=== PATIENT | male | born 1965 | race Caucasian/White ===

== ENCOUNTER 2018-04-17 19:23 | Emergency (ER) | payer BC ==
--- NOTE | 2018-04-17 19:25 | PDOC ---
History of Present Illness - General History Source: Patient Exam Limitations: No Limitations <Dede Noland - Last Filed: 04/17/18 20:52> <Chikis Deng - Last Filed: 04/18/18 03:49> - General Chief Complaint: Pain, Acute Stated Complaint: CHEST PAIN Time Seen by Provider: 04/17/18 19:24 - History of Present Illness Initial Comments: 04/17/18 20:30 The patient is a 52 year old male, with a significant past medical history of SVT (s/p unsuccessful ablation x1), DM, CAD, neuropathy (fingertips), HTN, GERD , and ventricular palpitations who presents to the emergency department s/p 3 second episode of bilateral neck cramping. Patient describes it as a cramping sensation initiating below the chin radiating down to the midsternal area lasting a few seconds, occuring after dinner. He notes a similar episode 3 days ago while stretching. While in the ED, he reports a repeat episode occurring for 2 seconds and since then has been asymptomatic. He follows up with his cloud engineer yearly, last echocardiogram and stress test done Spring 2017 without any pertinent findings. He denies repeat sensation during strenuous exercise including climbing stares, which he does daily at work. He denies any dysphasia, palpitations, chest pain, or shortness of breath. He denies any change in urinary or bowel continence. Allergies: Aspirin. Ibuprofen. Penicillins. Iodine. Past surgical history: Unsuccessful ablation x1, rotator cuff surgery. Social history: Nonsmoker. Denies EtOH use and recreational drug use. (Dede Noland) Past History <Dede Noland - Last Filed: 04/17/18 20:52> - Past Medical History Cardiac Disorders: Yes (SVT, ABLATION X1) Diabetes: Yes GI Disorders: Yes (GERD) HTN: Yes - Suicide/Smoking/Psychosocial Hx Smoking Status: No Smoking History: Never smoked Have you smoked in the past 12 months: No Number of Cigarettes Smoked Daily: 0 Hx Alcohol Use: No Drug/Substance Use Hx: No Substance Use Type: None <Chikis Deng - Last Filed: 04/18/18 03:49> - Past Medical History Allergies/Adverse Reactions: Allergies Allergy/AdvReac Type Severity Reaction Status Date / Time aspirin Allergy Severe Verified 04/17/18 19:25 ibuprofen Allergy Severe Difficulty Verified 04/17/18 19:25 Breathing iodine [Iodine] Allergy Severe Difficulty Verified 04/17/18 19:25 Breathing Penicillins Allergy Severe Difficulty Verified 04/17/18 19:25 Breathing Home Medications: Ambulatory Orders Atenolol [Tenormin] 25 mg PO BID 07/21/11 Cholecalciferol (Vitamin D3) [Vitamin D3] 1,000 units PO DAILY 07/21/11 Clopidogrel Bisulfate [Plavix] 75 mg PO DAILY 07/21/11 Fish Oil 300 PO DAILY 07/21/11 Metformin HCl [Glucophage] 500 mg PO BID 07/21/11 Pioglitazone HCl [Actos] 15 mg PO BID 07/21/11 Quinapril HCl [Accupril] 10 mg PO DAILY 07/21/11 Rabeprazole Sodium [Aciphex (Nf) 20 MG] 20 mg PO DAILY 07/21/11 Simvastatin [Zocor] 20 mg PO DAILY 07/21/11 Review of Systems - Review of Systems Able to Perform ROS?: Yes <Dede Noland - Last Filed: 04/17/18 20:52> <Chikis Deng - Last Filed: 04/18/18 03:49> - Review of Systems Comments:: 04/17/18 20:31 CONSTITUTIONAL: Absent: fever, chills, diaphoresis, generalized weakness, malaise, loss of appetite HEENT: Absent: rhinorrhea, nasal congestion, throat pain, throat swelling, difficulty swallowing, mouth swelling, ear pain, eye pain, visual Changes CARDIOVASCULAR: Absent: chest pain, syncope, palpitations, irregular heart rate, lightheadedness , peripheral edema RESPIRATORY: Absent: cough, shortness of breath, dyspnea with exertion, orthopnea, wheezing, stridor, hemoptysis GASTROINTESTINAL: Absent: abdominal pain, abdominal distension, nausea, vomiting, diarrhea, constipation, melena, hematochezia GENITOURINARY: Absent: dysuria, frequency, urgency, hesitancy, hematuria, flank pain, genital pain MUSCULOSKELETAL: Absent: myalgia, arthralgia, joint swelling SKIN: Absent: rash, itching, pallor HEMATOLOGIC/IMMUNOLOGIC: Absent: easy bleeding, easy bruising, lymphadenopathy, frequent infections ENDOCRINE: Absent: unexplained weight gain, unexplained weight loss, heat intolerance, cold intolerance NEUROLOGIC: Absent: headache, focal weakness or paresthesias, dizziness, unsteady gait, seizure, mental status changes, bladder or bowel incontinence PSYCHIATRIC: Absent: anxiety, depression, suicidal or homicidal ideation, hallucinations. (Dede Noland) *Physical Exam <Dede Noland - Last Filed: 04/17/18 20:52> <Chikis Deng - Last Filed: 04/18/18 03:49> - Vital Signs Last Vital Signs Temp Pulse Resp BP Pulse Ox 98.6 F 96 H 16 109/72 99 04/17/18 19:54 04/17/18 20:49 04/17/18 20:49 04/17/18 20:49 04/17/18 20:49 - Physical Exam Comments: 04/17/18 20:31 GENERAL: The patient is awake, alert, and fully oriented, in no acute distress. HEAD: Normal with no signs of trauma. EYES: Pupils equal, round and reactive to light, extraocular movements intact, sclera anicteric, conjunctiva clear with no pallor. ENT: Ears normal, nares patent, oropharynx clear without exudates. Moist mucous membranes. NECK: Normal range of motion, supple without lymphadenopathy, JVD, or masses. LUNGS: Breath sounds equal, clear to auscultation bilaterally. No wheeze/ crackles. HEART: Regular rate and rhythm, normal S1 and S2 without murmur or rub. ABDOMEN: Soft/nontender/nondistended. BS wnl. No guarding or rebound. No palpable masses. No hepatosplenomegaly. EXTREMITIES: Normal range of motion, no edema. No clubbing or cyanosis. No cords, erythema, or tenderness. NEUROLOGICAL: Cranial nerves II through XII grossly intact. Normal speech, normal gait. PSYCH: Normal mood, normal affect. SKIN: Warm, Dry, normal turgor, no rashes or lesions noted. (Dede Noland) Heart Score/ECG Review - History History: Slightly suspicious - Electrocardiogram EKG: Normal - Age Age: 45-65 - Risk Factors Risk Factors Heart Score: Yes Hx Hypertension, Yes Hx Diabetes, Yes Positive family hx of cardiac disease Based on the list above the patient has:: >/=3 risk factors or Hx atherosclerotic disease - Troponin Troponin: </= normal limit - Score Heart Score - Total: 3 <Chikis Deng - Last Filed: 04/18/18 03:49> ED Treatment Course - LABORATORY CBC & Chemistry Diagram: 04/17/18 19:54 04/17/18 19:54 <Dede Noland - Last Filed: 04/17/18 20:52> - LABORATORY CBC & Chemistry Diagram: 04/17/18 19:54 04/17/18 19:54 <Chikis Deng - Last Filed: 04/18/18 03:49> - ADDITIONAL ORDERS Additional order review: Laboratory Results 04/17/18 04/17/18 04/17/18 19:54 19:54 19:54 PT with INR 11.4 INR 1.02 Sodium 135 L Potassium 3.8 Chloride 104 Carbon Dioxide 25 Anion Gap 6 L BUN 16 Creatinine 0.8 Creat Clearance w eGFR > 60 Random Glucose 147 H D Calcium 9.3 Total Bilirubin 0.5 AST 18 ALT 23 D Alkaline Phosphatase 43 Creatine Kinase 91 Troponin I < 0.03 Total Protein 6.8 Albumin 4.0 04/17/18 19:54 RBC 4.86 MCV 87.4 MCHC 32.5 RDW 13.9 MPV 7.8 Neutrophils % 63.2 Lymphocytes % 26.7 D Monocytes % 7.7 Eosinophils % 1.7 D Basophils % 0.7 Medical Decision Making <Dede Noland - Last Filed: 04/17/18 20:52> <Chikis Deng - Last Filed: 04/18/18 03:49> - Medical Decision Making Documentation has been prepared under my direction and personally reviewed by me in its entirety. I attest that this documented accurately reflects all work, treatment, procedures and medical decision making performed by me. As noted above, this 52-year-old man with a history of hypertension/diabetes mellitus/family history of CAD presents with a few episodes of discomfort lasting a few seconds, occurring below his chin radiating to just below the suprasternal notch. No associated symptoms with this sensation and it resolves spontaneously. The patient has no history of this discomfort occurring during strenuous exercise. EKG/echo/stress test approximately 6 months ago in his cloud engineer's office was reportedly normal. Exam as noted. 12-lead electrocardiogram performed and interpreted by me: Normal sinus rhythm at 81 bpm; there is left axis deviation. Wave forms are otherwise normal without evidence of acute ST or T-wave abnormalities. There is no evidence of ectopy. CBC/chemistry profile including troponin level sent for analysis. Results of laboratory evaluation: CBC is essentially normal. Chemistries likewise shows no significant abnormalities (random glucose is 147). Troponin is not elevated. LFTs and renal function are normal Etiology of the patient's episodes is unclear. There was no evidence of thyroid masses or other abnormality on neck exam. Patient was advised to follow -up with his bottom sander who is scheduled to see the patient on , April 19. Also he should return to the ER if there is any worsening of symptoms. (Chikis Deng) *DC/Admit/Observation/Transfer <Dede Noland - Last Filed: 04/17/18 20:52> <Chikis Deng - Last Filed: 04/18/18 03:49> Diagnosis at time of Disposition: Atypical chest pain - Discharge Dispostion Disposition: HOME Condition at time of disposition: Stable - Patient Instructions Printed Discharge Instructions: DI for Atypical Chest Pain Additional Instructions: continue medications as prescribed followup with your bottom sander in 2 days as scheduled consider ENT evaluation within the next week as discussed Return to ER immediately if you have worsening pain, shortness of breath, palpitations, lightheadedness - Attestations Scribe Attestion: 04/17/18 20:31 Documentation prepared by Dede Noland, acting as diploma medical assistant for Chikis Dneg MD. (Dede Noland)
[2018-04-17 20:00] VITALS: TEMP 98.6; BMI 41.3
[2018-04-17 20:14] LABS: BASO % 0.7 % (0-2.0); EOS % 1.7 % (0-4.5); HEMATOCRIT 42.5 % (35.4-49); HEMOGLOBIN 13.8 GM/dl (11.7-16.9); LYMPH % 26.7 % (8-40); MCH 28.4 pg (25.7-33.7); MCHC 32.5 g/dl (32.0-35.9); MEAN CELL VOLUME 87.4 fl (80-96); MEAN PLT VOLUME 7.8 fl (7.5-11.1); MONO % 7.7 % (3.8-10.2); NEUT % 63.2 % (42.8-82.8); PLATELET COUNT 318 K/MM3 (134-434); RBC 4.86 M/mm3 (4.00-5.60); RDW 13.9 % (11.9-15.9); WHITE BLOOD COUNT 9.6 K/mm3 (4.0-10.8)
[2018-04-17 20:17] LABS: INR 1.02 (0.82-1.09); PROTHROMBIN TIME (PATIENT) 11.4 SEC (10.2-13.0)
[2018-04-17 20:23] LABS: ALK PHOS 43 U/L (32-92); ANION GAP 6 MMOL/L (8-16); BILIRUBIN,TOTAL 0.5 mg/dl (0.2-1.0); BLOOD UREA NITROGEN 16 mg/dl (7-18); CALCIUM 9.3 mg/dl (8.4-10.2); CHLORIDE 104 mmol/L (98-107); CO2 25 mmol/L (22-28); CREATININE 0.8 mg/dl (0.6-1.3); GLUCOSE,RANDOM 147 mg/dl (74-106); POTASSIUM 3.8 mmol/L (3.5-5.1); SGOT/AST 18 U/L (10-42); SGPT/ALT 23 U/L (10-40); SODIUM 135 mmol/L (136-145); TOT PROT 6.8 g/dl (6.4-8.3)
[2018-04-17 20:50] VITALS: BP 109/72; PULSE 96
--- NOTE | 2018-04-19 15:09 | EKG ---
Test Reason : Blood Pressure : / mmHG Vent. Rate : 081 BPM Atrial Rate : 081 BPM P-R Int : 192 ms QRS Dur : 098 ms QT Int : 366 ms P-R-T Axes : 036 -35 016 degrees QTc Int : 425 ms NORMAL SINUS RHYTHM LEFT AXIS DEVIATION MODERATE VOLTAGE CRITERIA FOR LVH, MAY BE NORMAL VARIANT ABNORMAL ECG NO PREVIOUS ECGS AVAILABLE Confirmed by RAMÍREZ MUJICA MD ([id number]) on 04/19/2018 3:09:04 PM Referred By: ATIYA DUTTA Confirmed By:RAMÍREZ MUJICA MD
== END 2018-04-17 20:52 | disposition home or self-care (01) ==
LOC: FER 19:23
DX: R07.89 Other chest pain (principal); I10 Essential (primary) hypertension; E11.9 Type 2 diabetes mellitus without complications; K21.9 Gastro-esophageal reflux disease without esophagitis
CPT/HCPCS: 36415; 80053; 82550; 84484; 85025; 85610; 93005; 99282-25

== ENCOUNTER 2020-09-27 14:49 | Inpatient (IN) | payer BC ==
[2020-09-27] MEDS ORDERED: MAG HYDROX/AL HYDROX/SIMETH -MYLANTA- ORAL SUSPENSION PO ONE (15:20)
[2020-09-27] MEDS ORDERED: FAMOTIDINE 20 MG/50 ML IVPB 20 MG/50 ML MG IVPB ONE ×2 (15:20→15:48)
[2020-09-27 15:29] VITALS: BMI 38.0
[2020-09-27] MEDS ORDERED: MAG HYDROX/AL HYDROX/SIMETH 30 ML UNIT-DOSE CUP ONE (15:48)
[2020-09-27 16:17] LABS: BASO % 0.8 % (0-2.0); EOS % 1.3 % (0-4.5); HEMATOCRIT 45.3 % (35.4-49); HEMOGLOBIN 15.4 GM/dl (11.7-16.9); LYMPH % 21.2 % (8-40); MCH 30.1 pg (25.7-33.7); MCHC 33.9 g/dl (32.0-35.9); MEAN CELL VOLUME 88.8 fl (80-96); MEAN PLT VOLUME 8.5 fl (7.5-11.1); NEUT % 69.7 % (42.8-82.8); PLATELET COUNT 301 K/MM3 (134-434); RDW 13.4 % (11.9-15.9); WHITE BLOOD COUNT 10.1 K/mm3 (4.0-10.8)
[2020-09-27 16:34] LABS: ALBUMIN 4.1 g/dl (3.4-5.0); BILIRUBIN,TOTAL 0.6 mg/dl (0.2-1); CALCIUM 9.2 mg/dl (8.5-10); CREATININE 0.8 mg/dl (0.55-1.3); TOT PROT 6.9 g/dl (6.4-8.2)
[2020-09-27] MEDS ORDERED: SODIUM CHLORIDE 0.9% 500 ML INFUS.BAG IV ONE (16:38)
[2020-09-27] MEDS ORDERED: PATIENT'S OWN MEDICATION (NON-FORMULARY) (Semaglutide [Ozempic] 1 MG/0.75 ML Pen.Injctr) SQ SCH (23:30)
[2020-09-27] MEDS: INSULIN SLIDING SCALE (NOVOLOG) 1 VIAL SQ SCH (23:40)
[2020-09-27] MEDS: CARVEDILOL 12.5 MG TABLET (FP) PO SCH (23:40)
[2020-09-28] MEDS: INSULIN SLIDING SCALE (NOVOLOG) 1 VIAL SQ SCH ×4 (06:16→21:44)
[2020-09-28 08:18] LABS: BASO % 0.3 % (0-2.0); EOS % 1.8 % (0-4.5); HEMATOCRIT 40.8 % (35.4-49); HEMOGLOBIN 13.9 GM/dl (11.7-16.9); LYMPH % 23.3 % (8-40); MCH 30.1 pg (25.7-33.7); MCHC 34.1 g/dl (32.0-35.9); MEAN CELL VOLUME 88.1 fl (80-96); MEAN PLT VOLUME 8.2 fl (7.5-11.1); MONO % 9.8 % (3.8-10.2); NEUT % 64.8 % (42.8-82.8); PLATELET COUNT 273 K/MM3 (134-434); RBC 4.64 M/mm3 (4.00-5.60); RDW 13.2 % (11.9-15.9); WHITE BLOOD COUNT 8.9 K/mm3 (4.0-10.8)
[2020-09-28 08:27] LABS: ALBUMIN 3.6 g/dl (3.4-5.0); BILIRUBIN,TOTAL 0.7 mg/dl (0.2-1); CALCIUM 8.6 mg/dl (8.5-10); CREATININE 0.6 mg/dl (0.55-1.3); PHOSPHOROUS 3.1 mg/dl (2.5-4.9)
[2020-09-28] MEDS: CHOLECALCIFEROL (VIT D3) 1,000 UNIT (25 MCG) TABLET PO SCH (09:51)
[2020-09-28] MEDS: QUINAPRIL HCL 5 MG TABLET PO SCH (09:51)
[2020-09-28] MEDS: CARVEDILOL 12.5 MG TABLET (FP) PO SCH ×2 (09:51→21:44)
[2020-09-28] MEDS: CLOPIDOGREL BISULFATE 75 MG TABLET (FP) PO SCH (09:51)
[2020-09-28] MEDS ORDERED: CARVEDILOL 12.5 MG TABLET (FP) PO SCH (10:00)
[2020-09-28] MEDS ORDERED: PATIENT'S OWN MEDICATION (NON-FORMULARY) (Simvastatin [Zocor] 20 MG Tablet) PO SCH (10:00)
[2020-09-28] MEDS ORDERED: QUINAPRIL HCL 10 MG TABLET PO SCH (10:00)
[2020-09-28] MEDS: ATORVASTATIN CA 10 MG TABLET (FP) PO SCH (22:33)
[2020-09-29] MEDS: INSULIN SLIDING SCALE (NOVOLOG) 1 VIAL SQ SCH ×4 (06:31→22:05)
[2020-09-29 08:17] LABS: CALCIUM 8.9 mg/dl (8.5-10); CREATININE 0.7 mg/dl (0.55-1.3); MAGNESIUM 1.9 mg/dL (1.8-2.4)
[2020-09-29] MEDS ORDERED: REGADENOSON 0.4 MG/5 ML PRE-FILLED SYRINGE IVPUSH ONE ×2 (09:30)
[2020-09-29] MEDS: CARVEDILOL 12.5 MG TABLET (FP) PO SCH ×2 (09:31→22:05)
[2020-09-29] MEDS: QUINAPRIL HCL 5 MG TABLET PO SCH (09:31)
[2020-09-29] MEDS: CLOPIDOGREL BISULFATE 75 MG TABLET (FP) PO SCH ×2 (09:31→17:55)
[2020-09-29] MEDS: CHOLECALCIFEROL (VIT D3) 1,000 UNIT (25 MCG) TABLET PO SCH ×2 (09:32→17:55)
[2020-09-29] MEDS: HEPARIN NA (PORCINE) 5,000 UNITS/ML 1ML VIAL SQ SCH (22:04)
[2020-09-29] MEDS: ATORVASTATIN CA 10 MG TABLET (FP) PO SCH (22:05)
[2020-09-30] MEDS: INSULIN SLIDING SCALE (NOVOLOG) 1 VIAL SQ SCH ×3 (06:56→16:36)
[2020-09-30] MEDS: HEPARIN NA (PORCINE) 5,000 UNITS/ML 1ML VIAL SQ SCH ×2 (06:56→14:05)
[2020-09-30] MEDS: QUINAPRIL HCL 5 MG TABLET PO SCH (10:35)
[2020-09-30] MEDS: CLOPIDOGREL BISULFATE 75 MG TABLET (FP) PO SCH (10:36)
[2020-09-30] MEDS: CHOLECALCIFEROL (VIT D3) 1,000 UNIT (25 MCG) TABLET PO SCH (10:36)
[2020-09-30] MEDS: CARVEDILOL 12.5 MG TABLET (FP) PO SCH (10:36)
[2020-09-30 14:09] VITALS: BP 104/74; PULSE 81; TEMP 98.6
== END 2020-09-30 19:20 | disposition short-term general hospital (02) | DRG 313 ==
LOC: FER 14:49 → INTOOBSV 20:16 → FM/S 20:16 → UNDOADMOB 20:16 → FM/S 20:17 → UNDODISOB 09-29 12:20 → OBSVTOIN 09-29 21:11
PROVIDERS: ADMIT Hospitalist; ATTEND Nurse Practitioner Acute Care
DX: R07.89 Other chest pain (principal); I47.1 Supraventricular tachycardia; I25.10 Atherosclerotic heart disease of native coronary artery without angina pectoris; E11.40 Type 2 diabetes mellitus with diabetic neuropathy, unspecified; I10 Essential (primary) hypertension; K21.9 Gastro-esophageal reflux disease without esophagitis; E66.9 Obesity, unspecified; Z68.38 Body mass index [BMI] 38.0-38.9, adult; I44.4 Left anterior fascicular block
CPT/HCPCS: 36415; 71046-TC-FY; 78452-TC; 80048; 80053; 80061; 82947; 82962; 83735; 84100; 84484; 85025; 93005; 93017; 93306-TC; 99285-25; A9502; C9803; G0378; J1644; J2785; U0003; U0005